=== PATIENT | male | born 1945 | race Caucasian/White ===

== ENCOUNTER → 2018-04-08 | Outpatient (CLI) | payer MEDICARE, OTHER ==
[~2018-04-08] MED LIST: LEXAPRO10 MG PO
--- NOTE | 2018-04-08 14:56 | Diagnostic Imaging Report ---
EXAMINATION: SHOULDER RIGHT COMPLETE INDICATION: Right shoulder pain. COMPARISON: None FINDINGS: No evidence of fracture, malalignment, or soft tissue mildly. Mild degenerative changes of the right glenohumeral and acromioclavicular joints with joint space narrowing and bony osteophyte formation. IMPRESSION: No acute radiographic abnormality in the right shoulder. 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 Signed by: Dr. Zahra Saldana MD on 04/08/2018 2:52 PM
--- NOTE | 2018-04-08 16:13 | Diagnostic Imaging Report ---
Exam: Right Hand Series. History: Right hand pain. Comparison: None. Findings: 3 views of the right hand. No evidence of acute fracture, malalignment, or soft tissue mildly. Mild joint space narrowing at the first carpometacarpal joint and interphalangeal joints. Impression: No acute osseous abnormality. Mild first carpometacarpal joint and interphalangeal joint osteoarthritis. Signed by: Dr. Zahra Saldana MD on 04/08/2018 4:10 PM
== END ==
LOC: RAD 13:14
PROVIDERS: ATTEND Internal Medicine
DX: M79.641 Pain in right hand (principal); M25.511 Pain in right shoulder